=== PATIENT | male | born 1965 | race Caucasian/White ===

== ENCOUNTER 2018-03-23 12:19 | Emergency (ER) | payer OTHER ==
[2018-03-23] MEDS ORDERED: HYDROCODONE/ACETAMINOPHEN 5-325 MG TABLET PO ONE (14:19)
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
[2018-03-23 16:36] VITALS: BP 142/83
--- NOTE | 2018-03-23 19:39 | EKG REPORT ---
SEVERITY:- ABNORMAL ECG - SINUS RHYTHM PROBABLE INFERIOR INFARCT, OLD : Confirmed by: Wale Dela Cruz MD 23-Mar-2018 19:39:34
== END 2018-03-23 16:36 | disposition home or self-care (01) ==
LOC: ER 12:19
DX: S06.0X9A Concussion with loss of consciousness of unspecified duration, initial encounter (principal); S13.9XXA Sprain of joints and ligaments of unspecified parts of neck, initial encounter; S63.90XA Sprain of unspecified part of unspecified wrist and hand, initial encounter; M94.0 Chondrocostal junction syndrome [Tietze]; R51 Headache; M54.2 Cervicalgia; R07.89 Other chest pain; M79.641 Pain in right hand; M79.642 Pain in left hand; V43.52XA Car driver injured in collision with other type car in traffic accident, initial encounter
CPT/HCPCS: 93005; 99284; 73130; 70450; 71250; 72125; 93010; L0120; L3908